=== PATIENT | male | born 1970 | race Caucasian/White ===

== ENCOUNTER 2020-07-27 09:54 | Day surgery (SDC) | payer OTHER, SELFPAY ==
[2020-07-20 13:26] VITALS: BMI 27.9
--- NOTE | 2020-07-26 09:18 | HO.ANESPROP2 ---
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 HTN (hypertension) Surgical History Surgical History Hx of tonsillectomy Social History Social History (Updated 07/20/20 @ 13:24 by Bre Huff) Alcohol intake: never Smoking Status: Never smoker Use of substances other than those prescribed or required for medical reasons: No Advance Directives: No Advance Directives Information Provided: No Advance Directives on File: No Meds Allergies Allergy/AdvReac Type Severity Reaction Status Date / Time No Known Allergies Allergy Verified 07/20/20 13:24 [No Known Allergies*] Home Medications Medication Instructions Recorded Confirmed Type lisinopril 5 mg PO DAILY 07/20/20 07/20/20 History Exam Exam Date and Time: July 26, 202018 Height,Weight and Vital Signs: Height 5 ft 10 in Weight 88.451 kg Assessment and Plan Assessment Anesthesia Assessment: Chart Reviewed Documented by User: Natalia Back 07/27/20 11:14 [facility] Past Medical History Medical History 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 HTN (hypertension) Surgical History Surgical History Hx of tonsillectomy Social History Social History (Updated 07/20/20 @ 13:24 by Bre Huff) Alcohol intake: never Smoking Status: Never smoker Use of substances other than those prescribed or required for medical reasons: No Advance Directives: No Advance Directives Information Provided: No Advance Directives on File: No Meds Allergies Allergy/AdvReac Type Severity Reaction Status Date / Time No Known Allergies Allergy Verified 07/20/20 13:24 [No Known Allergies*] Home Medications Medication Instructions Recorded Confirmed Type lisinopril 5 mg PO DAILY 07/20/20 07/20/20 History Exam Airway Mallampati Class: II TM Dist: >3cm Neck ROM: Full Heart: RRR Lungs: CTA
[2020-07-27 10:17] VITALS: BP 140/89; PULSE 101; RESP 16; TEMP 36.3; O2SAT 100
[2020-07-27] MEDS: Lactated Ringers 1,000 ML 100 ML IVCONT (10:19)
--- NOTE | 2020-07-27 11:42 | MHC.SHP ---
Pre-Procedural Eval Section B Chief Complaint: SCREENING Relevant Family History (Specify if Yes): No Relevant Social History: None Present Medications: see Short Stay Collaborative assessment Medical History: Significant History (HTN) History of Previous Operations: Relevant previous surgery/procedure and date(s) (tonsils) Allergies: Allergies Allergy/AdvReac Type Severity Reaction Status Date / Time No Known Allergies Allergy Verified 07/20/20 13:24 [No Known Allergies*] Review of Systems Sugical H&P ROS: Negative: Constitution, Cardiovascular, Respiratory, Neurological, Psychiatric, Hem-Onc, Allergic/Immunologic, Gastrointestinal, Genitourinary, Musculoskeletal, Integumentary, Endocrine and Eyes/Ears/Nose/Throat Exam Surgical H&P Exam: Normal: HEENT, Normal: Heart, Normal: Lungs, Normal: Extremities, Normal: Abdomen, Normal: Skin and Normal: Neurological Plan Diagnosis/Plan: Unchanged Patient has been examined and remains a candidate for the planned procedure
--- NOTE | 2020-07-27 11:43 | P.OP_ITS ---
Operative Note Operative Note Date of Service: 07/27/20 Narrative: Operative Information Procedure Description: Colonoscopy COLONOSCOPY Instrument: Olympus variable stiffness pediatric scope 190L Colonoscopy Monitoring: Vital signs and clinical assessment, continuous EKG monitoring, Pulse oximetry, Carbon Dioxide monitoring and blood pressure monitoring were done throughout the procedure. Colon withdrawal time was 8 minutes. Procedure: The patient was placed in the left lateral decubitis position and pre-procedure medications were administered. After a digital rectal examination of the ano-rectum, the video colonoscope was inserted into the rectum and advanced through the colon to the cecum/TI. The colonoscope was slowly withdrawn in a retrograde panoramic fashion and the colon mucosa was carefully examined including a retroflexed view of the rectum. Findings and interventions are described below. Procedure Difficulty:easy Findings: scattered medium sized diverticula in right and left colon Terminal Ileum-normal Cecum:normal Ascending Colon: normal Transverse Colon -normal Descending Colon:normal Sigmoid Colon: normal Rectum: Retroflexion with small sized internal hemorrhoids, grade I Anorectum - normal Colon preparation: [place] Bowel Preparation Scale Right colon; 3 Transverse colon: 3 Left colon; 2 (0 = Unprepared colon segment with mucosa not seen due to solid stool that cannot be cleared. 1 = Portion of mucosa of the colon segment seen, but other areas of the colon segment not well seen due to staining, residual stool and/or opaque liquid. 2 = Minor amount of residual staining, small fragments of stool and/or opaque liquid, but mucosa of colon segment seen well. 3 = Entire mucosa of colon segment seen well with no residual staining, small fragments of stool or opaque liquid) Impression and Post Procedure Diagnosis: internal hemorrhoids diverticular disease Plan: High fiber diet leaflet Avoid straining at stool, epsom salts and sitz bath, anusol supps or cream as needed Repeat Colonoscopy in 10 years or earlier if clinically indicated Above findings were reviewed with the patient and relevant handouts were provided if indicated.
--- NOTE | 2020-07-27 11:43 | PM.OP ---
Brief Operative Note Date of Service: 07/27/20 Pre-op diagnosis: colon screen Post-op diagnosis: same Procedure: see op note Surgeon: Dwayne Hagen MD Anesthesia: MAC Estimated blood loss (mL): 0 Condition: stable Disposition: PACU
[2020-07-27 12:12] VITALS: BP 102/59; PULSE 91; RESP 16; TEMP 36.8; O2SAT 96
[2020-07-27 12:27] VITALS: BP 114/70; PULSE 83; RESP 13; TEMP 36.8; O2SAT 97
--- NOTE | 2020-07-27 13:23 | HO.POSTANES ---
Post Anesthesia Evaluation Post Anesthesia Evaluation Vital Signs: Vital Signs Temp Pulse Resp BP Pulse Ox 07/27/20 12:27 98.3 F 83 13 114/70 97 07/27/20 12:12 98.3 F 91 16 102/59 L 96 07/27/20 10:17 97.4 F 101 H 16 140/89 H 100 Anesthesia: Monitored Mental Status: Awake Pain Control: Satisfactory Nausea/Vomiting: None Hydration: Adequate Anesthesia-Related Issues: No Anes. Related Issues
== END 2020-07-27 13:00 | disposition home or self-care (01) ==
PROVIDERS: Internal Medicine Gastroenterology; PCP Internal Medicine Geriatric Medicine; Visit Provider Nuclear Medicine
PROC: 0DJD8ZZ Inspection of Lower Intestinal Tract, Via Natural or Artificial Opening Endoscopic (ICD-10-PCS; CPT 45378; principal; 2020-07-27 11:30)
DX: Z12.11 Encounter for screening for malignant neoplasm of colon (principal); K57.30 Diverticulosis of large intestine without perforation or abscess without bleeding; K64.0 First degree hemorrhoids; I10 Essential (primary) hypertension
CPT/HCPCS: 45378

== ENCOUNTER → 2020-08-09 11:08 | Outpatient (BNVA) | payer OTHER, SELFPAY | PROVIDERS: PCP Internal Medicine Geriatric Medicine; Referring Provider Internal Medicine Geriatric Medicine; Visit Provider Physician Assistant | DX: Z76.89 Persons encountering health services in other specified circumstances (principal) ==

== ENCOUNTER 2021-07-07 07:40 | Inpatient (IN) | payer OTHER, SELFPAY ==
--- NOTE | ~2021-07-07 | CT_ITS ---
EXAMINATION: CT ABDOMEN AND PELVIS WITH CONTRAST CLINICAL INFORMATION: Left lower quadrant abdominal pain. COMPARISON: None TECHNIQUE: Multidetector volumetric images were obtained from the superior aspect of the liver through the pubic symphysis following administration 85 mL of Omnipaque 350 intravenous contrast. Sagittal and coronal reformatted images were obtained on the technologist's workstation. Oral contrast: No This CT examination was performed using dose optimization techniques as appropriate, variously including the following: *Automated exposure control *Adjustment of mA and/or kV according to patient size (this includes techniques or standardized protocols for targeted exams where dose is matched to indication/reason for exam; i.e. extremities or head) *Use of iterative reconstruction technique DLP: 738.0 mGy-cm FINDINGS: LUNG BASES: Motion related artifacts are noted. Hypoventilatory changes are noted at both lung bases. LIVER, GALLBLADDER, AND BILIARY TREE: Focal fatty infiltration is noted within the right lobe of the liver. No superimposed focal liver lesion. The gallbladder is unremarkable with no evidence of radiopaque gallstones, gallbladder wall thickening, or obvious pericholecystic inflammatory changes. PANCREAS: Unremarkable. SPLEEN: Unremarkable. ADRENAL GLANDS: Unremarkable. KIDNEYS AND URETERS: The kidneys are normal in size, shape, and attenuation. No hydronephrosis, hydroureter, or calculi seen. No perinephric stranding. BLADDER: Unremarkable. GASTROINTESTINAL TRACT: Focal colonic wall thickening and pericolonic inflammatory changes are noted at the distal descending colon associated with underlying colonic diverticuli. Specific note is made of few tiny air pocket seen along the posterior wall (578:4), consistent with acute distal descending colonic diverticulitis complicated by microperforation. No evidence of any fluid collection/abscess formation is seen. There is no evidence of any bowel obstruction or fistula formation present. The remainder of the large bowel otherwise appear unremarkable. The appendix is well-visualized at right lower quadrant (580:4), unremarkable. The small bowel loops are decompressed. The stomach is decompressed. ABDOMINAL WALL: No significant hernia is appreciated. LYMPH NODES: There are no pathologically enlarged lymphadenopathy present. VASCULAR: Atherosclerotic disease of the aorta and is branches without aneurysm formation. PELVIC VISCERA: There is no pelvic mass present. No evidence of any free fluid and/or free air. OSSEOUS STRUCTURES: Unremarkable. CT/CT abdomen pelvis w con IMPRESSION: 1. Abnormal study. Features of acute distal descending colonic diverticulitis complicated by microperforation without evidence of any abscess formation, pericolonic fluid collection or fistula formation or obstruction. 2. Focal fatty infiltration within the right lobe of the liver. 3. Atherosclerotic disease of the aorta and is branches without aneurysm formation. This critical result was discussed with DR Gerald Appiah @ 112pm on 07/07/2021 and it was ascertained that the content and urgency of the report was understood at the time of direct communication.
[2021-07-07 08:03] VITALS: BP 127/78; PULSE 116; RESP 20; TEMP 36.6; O2SAT 99; BMI 30.1
--- NOTE | 2021-07-07 10:58 | ED_ITS ---
HPI - Abdominal Pain General Chief Complaint: Abdominal Pain Stated Complaint: abd pain Time Seen by Provider: 07/07/21 10:51 Source: patient Mode of arrival: ambulatory Limitations: no limitations History of Present Illness HPI narrative: Patient comes emergency room complaining of suprapubic and left lower quadrant pain for 3 days. Patient states that he went to see his primary care physician yesterday, patient has labs and imaging pending. However, patient could not tolerate the pain and came to the emergency room. Patient denies fever chills, no flank pain, hematuria or dysuria. Patient denies fever chills. MD elicited complaint: abdominal pain Related Data Home Medications Medication Instructions Recorded Confirmed lisinopril 5 mg tablet 5 mg PO DAILY 07/20/20 07/20/20 Previous Rx's Medication Instructions Recorded sodium,potassium,mag sulfates 17.5 354 ml PO .Bowel Prep 1 Days #354 07/08/20 gram-3.13 gram-1.6 gram oral soln ml (Suprep Bowel Prep Kit) Allergies Allergy/AdvReac Type Severity Reaction Status Date / Time No Known Allergies Allergy Verified 07/20/20 13:24 [No Known Allergies*] Review of Systems Review of Systems Constitutional : No Weight loss, No Fever, No Chills, No Night Sweats, No Fatigue, No Malaise ENT/Mouth : No Hearing loss, No Ear Pain, No Nasal Congestion, No Sinus Pain, No Hoarseness, No sore throat, No Rhinorrhea, No Swallowing Difficulty Eyes: No Eye Pain, No Swelling, No Redness, No Foreign Body, No Discharge, No Vision Changes Cardiovascular : No Chest Pain, No SOB, No Dyspnea on Exertion, No Orthopnea, No Edema, No Palpitations Respiratory : No Cough, No Sputum, No Wheezing, No Smoke Exposure, No Dyspnea Gastrointestinal : No Nausea, No Vomiting, 1 episode of diarrhea, No Constipation, complaining of left lower quadrant and suprapubic pain, no flank pain, No Hematochezia, No Melena Genitourinary : no irregular bleeding, No Dysuria, No Urinary Frequency, No Hematuria, No Urinary Incontinence, No Urgency, No Flank Pain, No Urinary Flow Changes, No Hesitancy Musculoskeletal : No joint pain, No Myalgias, No Joint Swelling Skin : No Skin Lesions, No rash Neuro : No Weakness, No Numbness, No Paresthesias, No Loss of Consciousness, No Dizziness, No Headache Psych : No Anxiety/Panic, No Depression, No SI/HI/AH/VH, No Social Issues, Heme/Lymph: No Bruising, No Bleeding,No Lymphadenopathy Endocrine : No Polyuria, No Polydipsia, No Temperature Intolerance Physical Exam Vital Signs: Vital Signs: Last Vital Signs Temp 98.1 F 07/07/21 11:45 Pulse 114 H 07/07/21 11:45 Resp 16 07/07/21 11:45 BP 124/86 07/07/21 11:45 Pulse Ox 100 07/07/21 11:45 Body Mass Index 30.1 Const: Other: Appearance: Alert. Oriented X3. Seems uncomfortable Eyes: Pupils equal, round and reactive to light. ENT: Pharynx normal. Neck: Normal inspection. Neck supple. No lymph nodes noted. No crepitus CVS: Normal heart rate and rhythm. Pulses normal. Normal S1 and S2 Respiratory: No respiratory distress. Breath sounds normal. No Wheezing. No rales Abdomen: Soft , tenderness to palpation over the left lower quadrant, guarding, mild rebound, No rigidity. No distention Skin: Skin warm and dry. Normal skin color. Normal skin turgor. Extremities: No lower extremity edema. No lower extremity edema. No Lacerations. No Rash Neuro: Oriented X 3. No motor deficit. No sensory deficit. Moving all extermities. No slurred speech. Course Course Course Narrative: Patient feeling better after IV fluids, morphine and Zofran. However, patient's CT scan shows descending diverticulitis with micrope rforations. I discussed the patient and the CT scan findings with Dr. Rodriguez, patient being admitted. MDM - Abdominal Pain Lab Data Result diagrams: 07/07/21 11:39 07/07/21 11:39 Labs: Lab Results 07/07/21 07/07/21 07/07/21 Range/Units 11:01 11:01 11:01 WBC 11.3 H (4.8-10.8) X10*3/uL RBC 5.07 (4.60-5.80) X10*6/uL Hgb 14.9 (14.0-18.0) g/dl Hct 44.9 (42.0-52.0) % MCV 88.6 (80.0-98.0) fL MCH 29.4 (27.0-33.0) pg MCHC 33.2 (31.0-36.0) g/dl RDW 13.0 (11.0-16.0) % Plt Count 191 (160-400) X10*3/uL MPV 10.6 (9.4-12.4) fL Immature Gran % (Auto) 0.3 (0.0-0.4) % Neut % (Auto) 70.6 (45-73) % Lymph % (Auto) 16.8 L (20-40) % [place] % (Auto) 11.4 H (2-11) % Eos % (Auto) 0.5 (0-4) % Baso % (Auto) 0.4 (0-2) % Lymph # (Auto) 1.9 (1.2-4.9) X10*3/uL [place] # (Auto) 1.3 H (0.1-1.2) X10*3/uL Eos # (Auto) 0.1 (0.0-0.4) X10*3/uL Baso # (Auto) 0.0 (0.0-0.2) X10*3/uL Abs Immat Gran (auto) 0.03 (0.00-0.03) X10*3/uL Absolute Neuts (auto) 8.0 (2.0-8.3) x10*3/uL Absolute Nucleated RBC 0.000 (0.0-0.012) X10*3/uL Nucleated RBC % (auto) 0.0 (0.0-0.2) /100WBC Sodium 136 (135-145) mmol/L Potassium 4.0 (3.3-5.1) mmol/L Chloride 101 (96-108) mmol/L Carbon Dioxide 27 (22-29) mmol/L Anion Gap 12 (12-20) BUN 10 (9-16) mg/dL Creatinine 1.05 (0.5-1.4) mg/dL Estim Creat Clear Calc 97.5 Estimated GFR > 60 Random Glucose 103 (60-115) mg/dL Calcium 8.8 (8.4-10.2) mg/dL Total Bilirubin 0.6 (0.0-1.0) mg/dL Direct Bilirubin (0.0-0.5) mg/dL AST 24 (5-37) U/L ALT 52 H (0-40) U/L Alkaline Phosphatase 104 (39-117) U/L Total Protein 7.0 (6.5-8.0) g/dL Albumin 4.1 (3.5-5.0) g/dL Lipase 23 (8-78) U/L Urine Color Urine Appearance Urine pH (5.0-8.0) Ur Specific [place] (1.005-1.025) Urine Protein (NEG-TRACE) MG/DL Urine Glucose (UA) (NEG) MG/DL Urine Ketones (NEG) MG/DL Urine Blood (NEG) Urine Nitrite (NEG) Ur Leukocyte Esterase (NEG) COVID-19 (EL) Negative (Negative) COVID-19 Clin Com See Note 07/07/21 07/07/21 07/07/21 Range/Units 11:01 11:39 11:39 WBC 10.3 (4.8-10.8) X10*3/uL RBC 4.99 (4.60-5.80) X10*6/uL Hgb 14.5 (14.0-18.0) g/dl Hct 44.1 (42.0-52.0) % MCV 88.4 (80.0-98.0) fL MCH 29.1 (27.0-33.0) pg MCHC 32.9 (31.0-36.0) g/dl RDW 12.9 (11.0-16.0) % Plt Count 183 (160-400) X10*3/uL MPV 10.9 (9.4-12.4) fL Immature Gran % (Auto) 0.2 (0.0-0.4) % Neut % (Auto) 71.7 (45-73) % Lymph % (Auto) 14.5 L (20-40) % [place] % (Auto) 12.6 H (2-11) % Eos % (Auto) 0.6 (0-4) % Baso % (Auto) 0.4 (0-2) % Lymph # (Auto) 1.5 (1.2-4.9) X10*3/uL [place] # (Auto) 1.3 H (0.1-1.2) X10*3/uL Eos # (Auto) 0.1 (0.0-0.4) X10*3/uL Baso # (Auto) 0.0 (0.0-0.2) X10*3/uL Abs Immat Gran (auto) 0.02 (0.00-0.03) X10*3/uL Absolute Neuts (auto) 7.4 (2.0-8.3) x10*3/uL Absolute Nucleated RBC 0.000 (0.0-0.012) X10*3/uL Nucleated RBC % (auto) 0.0 (0.0-0.2) /100WBC Sodium 137 (135-145) mmol/L Potassium 4.4 (3.3-5.1) mmol/L Chloride 102 (96-108) mmol/L Carbon Dioxide 27 (22-29) mmol/L Anion Gap 12 (12-20) BUN 11 (9-16) mg/dL Creatinine 0.97 (0.5-1.4) mg/dL Estim Creat Clear Calc 105.5 Estimated GFR > 60 Random Glucose 102 (60-115) mg/dL Calcium 9.0 (8.4-10.2) mg/dL Total Bilirubin 0.6 (0.0-1.0) mg/dL Direct Bilirubin 0.2 (0.0-0.5) mg/dL AST 23 (5-37) U/L ALT 49 H (0-40) U/L Alkaline Phosphatase 101 (39-117) U/L Total Protein 6.8 (6.5-8.0) g/dL Albumin 4.0 (3.5-5.0) g/dL Lipase 23 (8-78) U/L Urine Color YELLOW Urine Appearance HAZY Urine pH 5.5 (5.0-8.0) Ur Specific [place] 1.020 (1.005-1.025) Urine Protein TRACE (NEG-TRACE) MG/DL Urine Glucose (UA) NEG (NEG) MG/DL Urine Ketones NEG (NEG) MG/DL Urine Blood NEG (NEG) Urine Nitrite NEG (NEG) Ur Leukocyte Esterase NEG (NEG) COVID-19 (EL) (Negative) COVID-19 Clin Com Imaging Data CT scan - abdomen: Radiologist's impression: FINDINGS: LUNG BASES: Motion related artifacts are noted. Hypoventilatory changes are noted at both lung bases.? LIVER, GALLBLADDER, AND BILIARY TREE: Focal fatty infiltration is noted within the right lobe of the liver. No superimposed focal liver lesion. The gallbladder is unremarkable with no evidence of radiopaque gallstones, gallbladder wall thickening, or obvious pericholecystic inflammatory changes.? PANCREAS: Unremarkable.? SPLEEN: Unremarkable.? ADRENAL GLANDS: Unremarkable.? KIDNEYS AND URETERS: The kidneys are normal in size, shape, and attenuation. No hydronephrosis, hydroureter, or calculi seen. No perinephric stranding. ? BLADDER: Unremarkable.? GASTROINTESTINAL TRACT: Focal colonic wall thickening and pericolonic inflammatory changes are noted at the distal descending colon associated with underlying colonic diverticuli. Specific note is made of few tiny air pocket seen along the posterior wall (578:4), consistent with acute distal descending colonic diverticulitis complicated by microperforation. No evidence of any fluid collection/abscess formation is seen. There is no evidence of any bowel obstruction or fistula formation present. The remainder of the large bowel otherwise appear unremarkable. The appendix is well-visualized at right lower quadrant (580:4), unremarkable. The small bowel loops are decompressed. The stomach is decompressed. ABDOMINAL WALL: No significant hernia is appreciated.? LYMPH NODES: There are no pathologically enlarged lymphadenopathy present. VASCULAR: Atherosclerotic disease of the aorta and is branches without aneurysm formation. PELVIC VISCERA: There is no pelvic mass present. No evidence of any free fluid and/or free air.? OSSEOUS STRUCTURES: Unremarkable.? CT/CT abdomen pelvis w con IMPRESSION: ? 1. Abnormal study. Features of acute distal descending colonic diverticulitis complicated by microperforation without evidence of any abscess formation, pericolonic fluid collection or fistula formation or obstruction. 2. Focal fatty infiltration within the right lobe of the liver. 3. Atherosclerotic disease of the aorta and is branches without aneurysm formation. ? Discharge Plan Discharge Clinical Impression: Diverticulitis large intestine Patient Disposition: Admitted As Inpatient Prescriptions: No Action Suprep Bowel Prep Kit 17.5-3.13-1.6 gram recon soln 354 ml PO .Bowel Prep 1 Days Qty: 354 RF: 0 lisinopril 5 mg Tablet 5 mg PO DAILY RF: 0 PMFSH Past Medical History Medical History 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 HTN (hypertension) Internal hemorrhoids Surgical History Hx of tonsillectomy Social History Social History (Updated 07/20/20 @ 13:24 by Bre Huff, ТАТЬЯНА) Alcohol intake: never Patient Tobacco Use Status: Never used Tobacco Use of substances other than those prescribed or required for medical reasons: No Advance Directives: No
[2021-07-07 11:07] LABS: Appearance Urine HAZY; Basophils Percent Auto 0.4 % (0-2); Color Urine YELLOW; Eosinophils Absolute Auto 0.1 X10*3/uL (0.0-0.4); Eosinophils Percent Auto 0.5 % (0-4); Glucose Urine UA NEG (NEG); Hematocrit 44.9 % (42.0-52.0); Hemoglobin 14.9 g/dl (14.0-18.0); Imm Gran Abs Auto 0.03 X10*3/uL (0.00-0.03); Imm Gran Pct Auto 0.3 % (0.0-0.4); Leukocyte Esterase Urine NEG (NEG); Lymphocytes Absolute Auto 1.9 X10*3/uL (1.2-4.9); Lymphocytes Percent Auto 16.8 % (20-40); Mean Corpuscular HGB Conc 33.2 g/dl (31.0-36.0); Mean Corpuscular Hemoglobin 29.4 pg (27.0-33.0); Mean Corpuscular Volume 88.6 fL (80.0-98.0); Mean Platelet Volume 10.6 fL (9.4-12.4); Monocytes Absolute Auto 1.3 X10*3/uL (0.1-1.2); Monocytes Percent Auto 11.4 % (2-11); Neutrophils Percent Auto 70.6 % (45-73); Nitrite Urine NEG (NEG); PH 5.5 (5.0-8.0); Platelet Count 191 X10*3/uL (160-400); Red Blood Count 5.07 X10*6/uL (4.60-5.80); Urine Blood NEG (NEG); Urine Ketones NEG (NEG); Urine Protein TRACE MG/DL (NEG-TRACE); White Blood Count 11.3 X10*3/uL (4.8-10.8)
[2021-07-07 11:08] LABS: MANUAL DIFF FLAG NO
[2021-07-07 11:25] LABS: Alanine Aminotransferase 52 U/L (0-40); Albumin Level 4.1 g/dL (3.5-5.0); Alkaline Phosphatase 104 U/L (39-117); Anion Gap 12 (12-20); Aspartate Amino Transferase 24 U/L (5-37); Bilirubin Total 0.6 mg/dL (0.0-1.0); Blood Urea Nitrogen 10 mg/dL (9-16); Calcium 8.8 mg/dL (8.4-10.2); Carbon Dioxide 27 mmol/L (22-29); Chloride 101 mmol/L (96-108); Creatinine Clr Calc Pharmacy 97.5; Estimated Glomerular Filt Rate > 60; Glucose Random 103 mg/dL (60-115); Lipase 23 U/L (8-78); Sodium 136 mmol/L (135-145)
[2021-07-07 11:27] LABS: COVID-19 Test Negative (Negative)
[2021-07-07] MEDS: 0.9 % Sodium Chloride 1,000 ML 999 ML IVCONT (11:42)
[2021-07-07] MEDS: Morphine Sulfate 4 MG/ML CARTRIDGE IVPUSH ×2 (11:43→16:24)
[2021-07-07] MEDS: ondansetron HCL 4 MG/2 ML VIAL IVPUSH (11:43)
[2021-07-07 11:45] VITALS: BP 124/86; PULSE 114; RESP 16; TEMP 36.7; O2SAT 100
[2021-07-07 11:47] LABS: MANUAL DIFF FLAG NO
[2021-07-07 11:58] LABS: Basophils Percent Auto 0.4 % (0-2); Eosinophils Absolute Auto 0.1 X10*3/uL (0.0-0.4); Eosinophils Percent Auto 0.6 % (0-4); Hematocrit 44.1 % (42.0-52.0); Hemoglobin 14.5 g/dl (14.0-18.0); Imm Gran Abs Auto 0.02 X10*3/uL (0.00-0.03); Imm Gran Pct Auto 0.2 % (0.0-0.4); Lymphocytes Absolute Auto 1.5 X10*3/uL (1.2-4.9); Lymphocytes Percent Auto 14.5 % (20-40); Mean Corpuscular HGB Conc 32.9 g/dl (31.0-36.0); Mean Corpuscular Hemoglobin 29.1 pg (27.0-33.0); Mean Corpuscular Volume 88.4 fL (80.0-98.0); Mean Platelet Volume 10.9 fL (9.4-12.4); Monocytes Absolute Auto 1.3 X10*3/uL (0.1-1.2); Monocytes Percent Auto 12.6 % (2-11); Neutrophils Absolute Auto 7.4 x10*3/uL (2.0-8.3); Neutrophils Percent Auto 71.7 % (45-73); Platelet Count 183 X10*3/uL (160-400); Red Blood Count 4.99 X10*6/uL (4.60-5.80); Red Cell Distribution Width 12.9 % (11.0-16.0); White Blood Count 10.3 X10*3/uL (4.8-10.8)
[2021-07-07 12:06] LABS: Alanine Aminotransferase 49 U/L (0-40); Alkaline Phosphatase 101 U/L (39-117); Anion Gap 12 (12-20); Aspartate Amino Transferase 23 U/L (5-37); Bilirubin Direct 0.2 mg/dL (0.0-0.5); Bilirubin Total 0.6 mg/dL (0.0-1.0); Blood Urea Nitrogen 11 mg/dL (9-16); Carbon Dioxide 27 mmol/L (22-29); Chloride 102 mmol/L (96-108); Creatinine Clr Calc Pharmacy 105.5; Estimated Glomerular Filt Rate > 60; Glucose Random 102 mg/dL (60-115); Lipase 23 U/L (8-78); Potassium 4.4 mmol/L (3.3-5.1); Sodium 137 mmol/L (135-145); Total Protein 6.8 g/dL (6.5-8.0)
[2021-07-07] MEDS: iohexoL 350 MG/ML 100 ML INFUS..BTL IV (12:17)
--- NOTE | 2021-07-07 13:45 | P.HPGS_ITS ---
History of Present Illness History of Present Illness Date of Service: 07/07/21 Chief complaint: abd pain Narrative: Nirav Black is a 51 year old male presenting with complaints of abdominal pain in the left lower quadrant. The pain began approximately 3 days prior to presentation to the emergency department. He also reports episodes of diarrhea since the pain began. He denies a prior history of similar symptoms. He reports chills but denies fever or sweats. He denies a previous history of abdominal surgery. Upon presentation to the emergency department he was noted to be tender in the left lower quadrant. Laboratories revealed a normal WBC. CT of the abdomen and pelvis however revealed diverticulitis of the sigmoid colon with the micro perforation. He is admitted to the surgical service for management of the diverticulitis. Review of Systems Review of Systems: Yes all other systems are reviewed and are negative Constitutional: Constitutional: Reports anorexia, Reports chills, Denies fever(s) and Denies night sweats ENT: Reports Normal hearing present and Denies dysphagia Cardiovascular: Cardiovascular: Reports Abdominal Distension, Denies chest pain, Denies irregular heart rhythm, Denies palpitations and Denies dyspnea Respiratory: Respiratory: Denies chest congestion, Denies cough and Denies dyspnea Gastrointestinal: Gastrointestinal: Reports as per HPI, Reports abdominal pain, Denies dysphagia, Reports diarrhea, Denies nausea and Denies vomiting Genitourinary: Genitourinary: Reports no additional male genitourinary complaints Musculoskeletal: Musculoskeletal: Reports no additional musculoskeletal complaints Integumentary/Breasts: Skin/Breast: Reports system reviewed and no additional complaints, except as docu Neurologic: Reports Normal hearing present Endocrine: Endocrine: Denies palpitations PMFSH Past Medical History Medical History 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 HTN (hypertension) Internal hemorrhoids Surgical History Surgical History Hx of tonsillectomy Social History Social History Alcohol intake: never Patient Tobacco Use Status: Never used Tobacco Use of substances other than those prescribed or required for medical reasons: No Advance Directives: No Meds Allergies Allergy/AdvReac Type Severity Reaction Status Date / Time No Known Allergies Allergy Verified 07/20/20 13:24 [No Known Allergies*] Home Medications Medication Instructions Recorded Confirmed Last Taken Type lisinopril 5 mg tablet 5 mg PO DAILY 07/20/20 07/20/20 07/27/20 06:00 History Physical Exam Vital Signs: Vital Signs: Last Vital Signs Temp 98.1 F 07/07/21 11:45 Pulse 114 H 07/07/21 11:45 Resp 16 07/07/21 11:45 BP 124/86 07/07/21 11:45 Pulse Ox 100 07/07/21 11:45 Body Mass Index 30.1 Const: General: cooperative, no acute distress and well developed Nutritional Appearance: well nourished Orientation/consciousness: patient oriented x3 Limitations: no limitations HENMT: Head: Yes normocephalic and Yes atraumatic Ears: hearing grossly normal bilaterally Neck: Neck: Yes trachea midline, Yes supple and No lymphadenopathy Resp: Effort & Inspection: normal respiratory effort, no audible wheezes, no cough and no respiratory distress GI: Inspection: Yes normal to inspection Palpation (GI): Soft to palpation, Tenderness to palpation present (GI) in the LLQ, no guarding, not rigid, No hepatosplenomegaly present and no masses Percussion: Yes normal to percussion Auscultation: normal bowel sounds Rectal Exam - Male: Yes deferred Skin: General skin exam: no rashes or lesions noted Neuro: General: patient oriented x3 Cranial nerves: Yes Normal hearing present Extrem: General: Yes no clubbing, cyanosis or edema Results Results Labs: Short CBC 07/07/21 07/07/21 Range/Units 11:01 11:39 WBC 11.3 H 10.3 (4.8-10.8) X10*3/uL Hgb 14.9 14.5 (14.0-18.0) g/dl Hct 44.9 44.1 (42.0-52.0) % Plt Count 191 183 (160-400) X10*3/uL BMP 07/07/21 07/07/21 11:01 11:39 Sodium 136 137 Potassium 4.0 4.4 Chloride 101 102 Carbon Dioxide 27 27 BUN 10 11 Creatinine 1.05 0.97 Calcium 8.8 9.0 Liver Function 07/07/21 07/07/21 Range/Units 11:01 11:39 Total Bilirubin 0.6 0.6 (0.0-1.0) mg/dL Direct Bilirubin 0.2 (0.0-0.5) mg/dL AST 24 23 (5-37) U/L ALT 52 H 49 H (0-40) U/L Alkaline Phosphatase 104 101 (39-117) U/L Albumin 4.1 4.0 (3.5-5.0) g/dL Urine 07/07/21 Range/Units 11:01 Urine Color YELLOW Urine Appearance HAZY Urine pH 5.5 (5.0-8.0) Ur Specific [place] 1.020 (1.005-1.025) Urine Protein TRACE (NEG-TRACE) MG/DL Urine Glucose (UA) NEG (NEG) MG/DL Abdomen CT scan report/results: image reviewed and other Additional studies: Sigmoid diverticulitis with micro perforation: Assessment and Plan (1) Diverticulitis of intestine with perforation without abscess: Status: Acute 51-year-old male patient presenting with complaints of abdominal pain in the left lower quadrant of 3 days duration found to have sigmoid diverticulitis with micro perforation. Patient denies previous episodes of diverticulitis. He reports chills but denies fever or sweats. Laboratories including WBC are normal. Patient will be admitted to the surgical service for IV antibiotics. I will repeat his CBC in the a.m.. He will be kept NPO on IV fluids. I reviewed the CT results with the patient and discussed the findings and the plan. He expressed understanding and agrees with the plan. Quality Stroke Does the patient have a stroke diagnosis?: No VTE Prior VTE?: No VTE Risk Level:: Surgical - low VTE Device Contraindication: N/A - Device Ordered VTE Drug Contraindication: Treatment Not Indicated Procedures Date of Service Date of Service: 07/07/21
[2021-07-07 14:22] VITALS: BP 135/80; PULSE 102; RESP 16; TEMP 36.7; O2SAT 99
[2021-07-07 15:38] VITALS: BP 116/71; PULSE 96; RESP 18; TEMP 36.6; O2SAT 96
--- NOTE | 2021-07-07 16:19 | PHA.MEDREC ---
Pharmacy Consult ? Medication Reconciliation Pharmacy has completed the medication reconciliation.
[2021-07-07] MEDS: Piperacillin Sodium/Tazobactam 3.375 GM in 0.9 % Sodium Chloride 50 ML IV ×2 (16:24→22:59)
[2021-07-07] MEDS: Dextrose 5 % and Lactated Ring 1,000 ML 125 ML IVCONT ×2 (16:25→23:54)
[2021-07-07] MEDS: 0.9 % Sodium Chloride Flush 3 ML SYRINGE IVFLUSH ×2 (16:26→23:55)
[2021-07-07 17:47] VITALS: BP 101/56; PULSE 95; RESP 18; TEMP 36.8; O2SAT 98
[2021-07-07 18:09] LABS: INTERNATIONAL NORM RATIO 1.2 (0.9-1.1); Prothrombin Time 13.4 SEC (9.9-13.0)
[2021-07-07 18:12] LABS: Lactic Acid 0.8 mmol/L (0.5-2.0)
--- NOTE | 2021-07-07 19:55 | PC.NURSE ---
Nurse to nurse given to Leann. pt. ready for transport upstairs
[2021-07-07 20:40] VITALS: BP 116/68; PULSE 95; RESP 17; TEMP 36.8; O2SAT 97
--- NOTE | 2021-07-07 21:21 | MHC.CM.PN ---
CM met with admitted patient and his , with medical chief technician, as pt is Ethiopian speaking. No IMM necessary. No HCP on file. HCP reviewed, completed and signed. Copies given and uploaded into [facility] and [facility]. HCP/ Keisha Clinton ([phone]). Lives with . A&Ox3. Employed. Uses no DME or services. Fully vaccinated with Moderna. D/C plan is home without services. Transportation home by . CM to follow for d/c needs.
[2021-07-08] VITALS: BP 107/60; PULSE 85; RESP 17; TEMP 36.6; O2SAT 95
[2021-07-08] MEDS: Piperacillin Sodium/Tazobactam 3.375 GM in 0.9 % Sodium Chloride 50 ML IV ×4 (04:53→21:18)
[2021-07-08 06:14] LABS: MANUAL DIFF FLAG NO
[2021-07-08 06:17] LABS: Basophils Percent Auto 0.4 % (0-2); Eosinophils Absolute Auto 0.1 X10*3/uL (0.0-0.4); Eosinophils Percent Auto 1.7 % (0-4); Hematocrit 39.4 % (42.0-52.0); Hemoglobin 13.3 g/dl (14.0-18.0); Imm Gran Abs Auto 0.01 X10*3/uL (0.00-0.03); Imm Gran Pct Auto 0.1 % (0.0-0.4); Lymphocytes Absolute Auto 1.8 X10*3/uL (1.2-4.9); Lymphocytes Percent Auto 24.6 % (20-40); Mean Corpuscular HGB Conc 33.8 g/dl (31.0-36.0); Mean Corpuscular Hemoglobin 29.4 pg (27.0-33.0); Mean Corpuscular Volume 87.2 fL (80.0-98.0); Mean Platelet Volume 10.7 fL (9.4-12.4); Monocytes Percent Auto 14.5 % (2-11); Neutrophils Absolute Auto 4.2 x10*3/uL (2.0-8.3); Neutrophils Percent Auto 58.7 % (45-73); Platelet Count 190 X10*3/uL (160-400); Red Blood Count 4.52 X10*6/uL (4.60-5.80); Red Cell Distribution Width 12.9 % (11.0-16.0); White Blood Count 7.1 X10*3/uL (4.8-10.8)
[2021-07-08 06:38] LABS: Anion Gap 12 (12-20); Blood Urea Nitrogen 11 mg/dL (9-16); Calcium 8.3 mg/dL (8.4-10.2); Carbon Dioxide 26 mmol/L (22-29); Chloride 105 mmol/L (96-108); Creatinine Clr Calc Pharmacy 101.3; Estimated Glomerular Filt Rate > 60; Glucose Random 126 mg/dL (60-115); Potassium 4.1 mmol/L (3.3-5.1); Sodium 139 mmol/L (135-145)
[2021-07-08 08:00] VITALS: BP 119/80; PULSE 102; RESP 20; TEMP 36.2; O2SAT 98
--- NOTE | 2021-07-08 08:05 | PM.PNGS ---
Subjective Subjective Date of Service: 07/08/21 Interval history: Patient feels much improved with decreased abdominal pain. He reports being hungry and is moving his bowels (liquid). He denies fever or chills. Physical Exam Vital Signs: Vital Signs: Last Vital Signs Temp 97.9 F 07/08/21 00:00 Pulse 85 07/08/21 00:00 Resp 17 07/08/21 00:00 BP 107/60 07/08/21 00:00 Pulse Ox 95 07/08/21 00:00 Body Mass Index 30.1 Const: General: cooperative, healthy appearing and well developed Nutritional Appearance: well nourished Orientation/consciousness: patient oriented x3 Limitations: no limitations HENMT: Head: Yes normocephalic and Yes atraumatic Ears: hearing grossly normal bilaterally Resp: Effort & Inspection: normal respiratory effort, no audible wheezes, no cough and no respiratory distress GI: Other: Soft, nondistended, minimal tenderness to deep palpation in the left lower quadrant without rebound, guarding, or rigidity. Skin: Other: Warm, dry, no rash Neuro: General: patient oriented x3 Extrem: Other: No edema Procedures Date of Service Date of Service: 07/08/21 Progress Note: A&P Assessment and plan (1) Diverticulitis of intestine with perforation without abscess: Status: Acute Assessment and Plan: 51-year-old male patient presenting with a 1st episode of diverticulitis found to have a micro perforation in the sigmoid colon. Laboratories today revealed normal WBC. On examination the patient is improved with decreased tenderness in the left lower quadrant. I will advance him to a regular diet and continue the IV antibiotics today. Possible discharge in a.m. if he tolerates a regular diet without increased abdominal pain. Fall Risk Details Current Medications: Current Medications Acetaminophen (Acetaminophen 325 Mg Tablet) 650 mg PO QID PRN PRN Reason: headache, temp > 101 Dextrose/Lactated Ringer's (D5lr) 1,000 mls @ 125 mls/hr IVCONT .Q8H [facility] Last Admin: 07/08/21 07:09 Dose: Not Given Documented by: Piperacillin Sod/Tazobactam (Sod 3.375 gm/ Sodium Chloride) 50 mls @ 100 mls/hr IV Q6H [facility] Last Infusion: 07/08/21 05:44 Dose: Infused Documented by: Lisinopril (Lisinopril 5 Mg Tablet) 5 mg PO DAILY [facility]; Protocol Morphine Sulfate (Morphine Sulfate 4 Mg/Ml Cartridge) 4 mg IVPUSH Q4H PRN; Protocol PRN Reason: Pain, Severe (Pain Scale 7-10) Last Admin: 07/07/21 16:24 Dose: 4 mg Documented by: Ondansetron HCl (Ondansetron Hcl 4 Mg/2 Ml Vial) 4 mg IVPUSH QID PRN PRN Reason: Nausea Oxycodone HCl (Oxycodone Hcl Immed Release 5 Mg Tablet) 5 mg PO Q6H PRN PRN Reason: Pain, Moderate (Pain Scale 4-6 Pharmacy Consult (Consult Rx Perform Med Rec) 1 each MISCELLANE ONCE PRN PRN Reason: Consult order Sodium Chloride (0.9 % Sodium Chloride Flush 3 Ml Syringe) [facility] Admin: 07/08/21 07:30 Dose: Not Given Documented by: Zolpidem Tartrate (Zolpidem Tartrate 5 Mg Tablet) 5 mg PO BEDTIME PRN PRN Reason: Insomnia Time Spent With Patient Time: Total time spent is greater than 50% in coordination of care (as documented) at patient's floor/unit and/or counseling patient: Time with patient: 15 - 24 minutes Quality Stroke Does the patient have a stroke diagnosis?: No VTE Prior VTE?: No VTE Risk Level:: Surgical - low VTE Device Contraindication: N/A - Device Ordered VTE Drug Contraindication: Treatment Not Indicated
[2021-07-08 08:56] VITALS: BP 119/80; PULSE 102
[2021-07-08] MEDS: lisinopriL 5 MG TABLET PO (08:56)
--- NOTE | 2021-07-08 10:03 | MHC.CM.PN ---
NURSE CONTROLLER OPERATIONS AND HR MANAGER NOTE ELECTRONIC MEDICAL RECORD REVIEWED, PER DOCUMENTATION PATIENT WITH DIVERTICULITIS WITH PERFORTION WITH OUT ABSCESS OF SIGMOID COLON , PATIENT REPORTED FEELING BETTER AND PASSING LIQUID STOOLS, PLAN IS TO ADVANCE DIET SLOWLY , CONTINUE IV ANTIBIOTICS AND ANALGEICS , WITH POSSIBLE DISCHARGE OVER WEEKEND DISCHARGE PLAN HOME WITH WITHOUT SERVICES TRANSPORTATION FAMILY PCP PATIENT TO CALL FOR POST HOSPITAL DISCHARGE FOLLOW UP
[2021-07-08] MEDS: Dextrose 5 % and Lactated Ring 1,000 ML 125 ML IVCONT ×2 (12:27→21:23)
[2021-07-08 15:50] VITALS: BP 112/72; PULSE 94; RESP 16; TEMP 36.5; O2SAT 97
[2021-07-09] VITALS: BP 110/68; PULSE 72; RESP 16; TEMP 36.9; O2SAT 98
[2021-07-09] MEDS: Piperacillin Sodium/Tazobactam 3.375 GM in 0.9 % Sodium Chloride 50 ML IV ×2 (05:09→11:10)
[2021-07-09 05:34] VITALS: BP 112/62; PULSE 74; RESP 16; TEMP 36.4; O2SAT 98
[2021-07-09 07:35] VITALS: BP 121/74; PULSE 84; RESP 18; TEMP 37; O2SAT 95
[2021-07-09] MEDS: lisinopriL 40 MG TABLET PO (08:07)
[2021-07-09] MEDS: Dextrose 5 % and Lactated Ring 1,000 ML 125 ML IVCONT (08:07)
--- NOTE | 2021-07-09 12:23 | MHC.CM.PN ---
PATIENT IS DISCHARGED HOME - SELF CARE FAMILY TO TRANSPORT. RN AWARE OF PLAN.
--- NOTE | 2021-07-13 14:57 | PM.DS ---
DS: Providers Provider Date of Service: 07/09/21 Date of admission: 07/07/21 14:37 Date of discharge: 07/09/21 Primary care physician: Mina Harvey MD Admitting clinician: Daniele Rodriguez Discharging clinician: Daniele Rodriguez DS: Diagnosis Discharge Diagnosis (1) Diverticulitis of intestine with perforation without abscess: Status: Acute DS: Summary Status at Discharge Cognitive/behavioral status at discharge: ?Nirav Black is a 51 year old male presenting with complaints of abdominal pain in the left lower quadrant.? The pain began approximately 3 days prior to presentation to the emergency department.? He also reports episodes of diarrhea since the pain began.? He denies a prior history of similar symptoms.? He reports chills but denies fever or sweats.? He denies a previous history of abdominal surgery.? Upon presentation to the emergency department he was noted to be tender in the left lower quadrant.? Laboratories revealed a normal WBC.? CT of the abdomen and pelvis however revealed diverticulitis of the sigmoid colon with the micro perforation.? He is admitted to the surgical service for management of the diverticulitis. On examination the patient was noted to be afebrile with tenderness in the left lower quadrant without rebound, guarding, or rigidity. He was made NPO and started on IV antibiotics. By the next hospital day he reported decreased in abdominal pain, passing flatus and liquid bowel movements. He denied fever or chills. He was subsequently advanced to a regular a low residue diet and tolerated this well without increased abdominal pain. By the 3rd hospital day the patient felt much improved without abdominal pain felt comfortable going home. He was placed on oral antibiotics and subsequently discharged to home in stable condition. The plan is for him to continue on the antibiotics and follow up in the office in approximately 1 week. Functional status at discharge: independent ambulation Overall status at discharge: patient is back to baseline Time Spent with Patient Time attestation: Total time spent providing and/or coordinating discharge services: Discharge coordination time: Less than 30 minutes Quality: Stroke Does the patient have a stroke diagnosis?: No Physical Exam Vital Signs: Vital Signs: Last Vital Signs Temp 98.6 F 07/09/21 07:35 Pulse 84 07/09/21 07:35 Resp 18 07/09/21 07:35 BP 121/74 07/09/21 07:35 Pulse Ox 95 07/09/21 07:35 Body Mass Index 30.1 Const: General: healthy appearing, no acute distress and well developed Nutritional Appearance: well nourished Orientation/consciousness: patient oriented x3 Limitations: no limitations HENMT: Head: Yes normocephalic and Yes atraumatic Resp: Effort & Inspection: normal respiratory effort Auscultation: clear to auscultation bilaterally GI: Inspection: Yes normal to inspection Palpation (GI): Soft to palpation, nontender, no guarding, not rigid and No Rebound tenderness present Skin: General skin exam: no rashes or lesions noted Neuro: General: patient oriented x3 Extrem: General: Yes normal to inspection and Yes no clubbing, cyanosis or edema Discharge Plan Discharge Patient Disposition: Home, Self-Care Discharge Diagnosis: Diverticulitis Referrals: Daniele Rodriguez MD [Physician] - 1 Week Name,MD Mina [Primary Care Provider] - 1 Week Discharge Medications: New amoxicillin-pot clavulanate [Augmentin] 875-125 mg tablet 1 tab PO Q12H Qty: 16 RF: 0 Continued cetirizine 10 mg tablet 1 tab PO DAILY PRN (Reason: Allergic Symptoms) RF: 0 lisinopril 40 mg tablet 1 tab PO DAILY RF: 0 Discharge Orders: Discharge Order (Routine); Ordered 07/09/21 Ordered By: Mariana Melendez Diet: other Activity on Discharge: No heavy lifting Stand Alone Forms: Patient Portal Discharge page Activity Restrictions/Additional Instructions: Avoid heavy lifting and strenuous activity until the time of your follow-up with Dr. Rodriguez in the office. Follow a low residue diet. Call Dr. Rodriguez is a office if you experience increasing pain, fever, or if you have any other concerns regarding your treatment and follow-up. Care Plan Goals: Resolution of diverticulitis, return to usual activities and work Health Concerns: Acute sigmoid diverticulitis, hypertension Plan of Treatment: Complete course of oral antibiotics. Follow-up in office. Assessment: Improved Discharge Date/Time: 07/09/21 13:00
== END 2021-07-09 13:00 | disposition home or self-care (01) | DRG 392 ==
LOC: HO.ED 13:37 → HO.EDOVER 14:47 → HO.S3 19:21
PROVIDERS: Admitting Provider Surgery; Emergency Provider Emergency Medicine; PCP Internal Medicine Geriatric Medicine; Visit Provider Surgery
DX: K57.20 Diverticulitis of large intestine with perforation and abscess without bleeding (principal); Z20.822 Contact with and (suspected) exposure to COVID-19; I10 Essential (primary) hypertension; Z79.899 Other long term (current) drug therapy
CPT/HCPCS: 36415; 74177; 80048; 80053; 80076; 81003; 83605; 83690; 85025; 85610; 87635; 96361; 96374; 96375; 99285; J2270; J2405; J2543; Q9967

== ENCOUNTER → 2021-07-14 08:55 | Outpatient (BNVA) | payer OTHER, SELFPAY | PROVIDERS: PCP Internal Medicine Geriatric Medicine; Referring Provider Internal Medicine Geriatric Medicine; Visit Provider Surgery ==

== ENCOUNTER 2021-08-10 13:03 | Outpatient (REF) | payer OTHER, SELFPAY ==
--- NOTE | ~2021-08-10 | CT_ITS ---
EXAMINATION: CT ABDOMEN AND PELVIS WITH CONTRAST CLINICAL INFORMATION: Diverticulitis. COMPARISON: 07/07/2021 TECHNIQUE: Multidetector volumetric images were obtained from the superior aspect of the liver through the pubic symphysis following administration 85 mL of Omnipaque 350 intravenous contrast. Sagittal and coronal reformatted images were obtained on the technologist's workstation. Oral Contrast: Given. This CT examination was performed using dose optimization techniques as appropriate, variously including the following: *Automated exposure control. *Adjustment of mA and/or kV according to patient size (this includes techniques or standardized protocols for targeted exams where dose is matched to indication/reason for exam; i.e. extremities or head). *Use of iterative reconstruction technique. DLP: 556 mGy-cm FINDINGS: LUNG BASES: The visualized lung bases are unremarkable. LIVER, GALLBLADDER, AND BILIARY TREE: Some segmental differential attenuation similar to previous is likely fatty change. The vessels are not displaced. The gallbladder is unremarkable with no evidence of radiopaque gallstones, gallbladder wall thickening, or obvious pericholecystic inflammatory changes. PANCREAS: Unremarkable. SPLEEN: Unremarkable. ADRENAL GLANDS: Unremarkable. KIDNEYS AND URETERS: The kidneys are normal in size, shape, and attenuation. No hydronephrosis, hydroureter, or calculi seen. No perinephric stranding. BLADDER: Unremarkable. GASTROINTESTINAL TRACT: There is overall decrease in soft tissue stranding around the area of diverticulitis previously but there is some increasing air immediately adjacent to the colon. This area does not disseminate into the remainder of the abdomen. ABDOMINAL WALL: No significant hernia is appreciated. LYMPH NODES: Normal. VASCULAR: Unremarkable. PELVIC VISCERA: Unremarkable. OSSEOUS STRUCTURES: Unremarkable. CT/CT abdomen pelvis w con IMPRESSION: While there is felt to be decreasing in overall soft tissue stranding around the diverticulitis seen previously, there is an increase size of focal pocket of air but this is immediately adjacent to the colon and air has not disseminated into the remainder of the mesentery or abdomen proper. Attention to follow up. Fleischner guidelines were followed.
[2021-08-10] MEDS: iohexoL 350 MG/ML 100 ML INFUS..BTL IV (16:49)
== END 2021-08-10 13:04 | disposition home or self-care (01) ==
LOC: HO.CT 13:03
PROVIDERS: Visit Provider Surgery
DX: K57.80 Diverticulitis of intestine, part unspecified, with perforation and abscess without bleeding (principal)
CPT/HCPCS: 74177; Q9967

== ENCOUNTER → 2021-08-18 13:02 | Outpatient (BNVA) | payer OTHER, SELFPAY | PROVIDERS: PCP Internal Medicine Geriatric Medicine; Referring Provider Internal Medicine Geriatric Medicine; Visit Provider Surgery ==

== ENCOUNTER 2022-06-03 09:27 | Outpatient (REF) | payer OTHER, SELFPAY ==
[2022-06-03 10:05] LABS: Hematocrit 48.3 % (42.0-52.0); Mean Corpuscular HGB Conc 33.1 g/dl (31.0-36.0); Mean Corpuscular Hemoglobin 28.9 pg (27.0-33.0); Mean Corpuscular Volume 87.3 fL (80.0-98.0); Mean Platelet Volume 10.9 fL (9.4-12.4); Platelet Count 241 X10*3/uL (160-400); Red Blood Count 5.53 X10*6/uL (4.60-5.80); Red Cell Distribution Width 12.2 % (11.0-16.0); White Blood Count 8.5 X10*3/uL (4.8-10.8)
[2022-06-03 10:57] LABS: Alanine Aminotransferase 30 U/L (0-40); Albumin Level 4.7 g/dL (3.5-5.0); Alkaline Phosphatase 121 U/L (39-117); Anion Gap 15 (12-20); Aspartate Amino Transferase 20 U/L (5-37); Bilirubin Total 0.5 mg/dL (0.0-1.0); Blood Urea Nitrogen 18 mg/dL (9-16); Carbon Dioxide 28 mmol/L (22-29); Chloride 102 mmol/L (96-108); Cholesterol 217 mg/dL; Estimated Glomerular Filt Rate > 60; Glucose Random 98 mg/dL (60-115); HDL Cholesterol 48 mg/dL; LDL Cholesterol Calculated 133 mg/dl; Potassium 5.2 mmol/L (3.3-5.1); Sodium 140 mmol/L (135-145); Total Protein 7.7 g/dL (6.5-8.0); Triglycerides 180 mg/dL
[2022-06-03 11:06] LABS: Estimated Average Glucose 123 mg/dL; Hemoglobin A1c % 5.9 %
== END 2022-06-03 09:28 | disposition home or self-care (01) ==
LOC: HO.LAB 09:27
PROVIDERS: Visit Provider Internal Medicine Geriatric Medicine
DX: Z00.00 Encounter for general adult medical examination without abnormal findings (principal); Z13.1 Encounter for screening for diabetes mellitus; Z13.220 Encounter for screening for lipoid disorders; Z11.1 Encounter for screening for respiratory tuberculosis
CPT/HCPCS: 36415; 80053; 80061; 83036; 85027; 86481

== ENCOUNTER 2023-06-09 09:23 | Outpatient (REF) | payer OTHER, SELFPAY ==
[2023-06-09 10:41] LABS: Estimated Average Glucose 117 mg/dL; Hemoglobin A1c % 5.7 % (<6.0)
[2023-06-09 11:04] LABS: Anion Gap 14 (12-20); Blood Urea Nitrogen 15 mg/dL (9-16); Calcium 9.6 mg/dL (8.4-10.2); Carbon Dioxide 25 mmol/L (22-29); Chloride 104 mmol/L (96-108); Cholesterol 218 mg/dL (<200); Estimated Glomerular Filt Rate > 60; Glucose Random 94 mg/dL (60-115); HDL Cholesterol 51 mg/dL (>40); LDL Cholesterol Calculated 142 mg/dL (<100); Potassium 4.3 mmol/L (3.3-5.1); Sodium 139 mmol/L (135-145); Triglycerides 125 mg/dL (<150)
== END 2023-06-09 09:24 | disposition home or self-care (01) ==
LOC: HO.LAB 09:23
PROVIDERS: PCP Internal Medicine Geriatric Medicine; Visit Provider Internal Medicine Geriatric Medicine
DX: Z13.220 Encounter for screening for lipoid disorders (principal); R73.03 Prediabetes; I10 Essential (primary) hypertension
CPT/HCPCS: 36415; 80048; 80061; 83036

== ENCOUNTER 2023-11-03 08:25 | Outpatient (REF) | payer OTHER, SELFPAY ==
[2023-11-03 09:48] LABS: Anion Gap 12 (12-20); Blood Urea Nitrogen 20 mg/dL (9-16); Calcium 9.6 mg/dL (8.4-10.2); Carbon Dioxide 27 mmol/L (22-29); Chloride 101 mmol/L (96-108); Estimated Glomerular Filt Rate > 60; Glucose Random 107 mg/dL (60-115); Potassium 5.3 mmol/L (3.3-5.1); Sodium 135 mmol/L (135-145)
== END 2023-11-03 08:26 | disposition home or self-care (01) ==
LOC: HO.LAB 08:25
PROVIDERS: PCP Internal Medicine Geriatric Medicine; Visit Provider Internal Medicine Geriatric Medicine
DX: I10 Essential (primary) hypertension (principal); R73.03 Prediabetes
CPT/HCPCS: 36415; 80048

== ENCOUNTER 2024-01-05 09:24 | Outpatient (REF) | payer OTHER, SELFPAY ==
[2024-01-05 10:52] LABS: Anion Gap 14 (12-20); Blood Urea Nitrogen 16 mg/dL (9-16); Calcium 9.6 mg/dL (8.4-10.2); Carbon Dioxide 25 mmol/L (22-29); Chloride 103 mmol/L (96-108); Cholesterol 158 mg/dL (<200); Estimated Glomerular Filt Rate > 60; Glucose Random 110 mg/dL (60-115); HDL Cholesterol 38 mg/dL (>40); LDL Cholesterol Calculated 96 mg/dL (<100); Potassium 4.3 mmol/L (3.3-5.1); Sodium 138 mmol/L (135-145); Triglycerides 120 mg/dL (<150)
== END 2024-01-05 09:25 | disposition home or self-care (01) ==
LOC: HO.LAB 09:24
PROVIDERS: PCP Internal Medicine Geriatric Medicine; Visit Provider Internal Medicine Geriatric Medicine
DX: I10 Essential (primary) hypertension (principal); E87.5 Hyperkalemia
CPT/HCPCS: 36415; 80048; 80061

== ENCOUNTER 2024-05-17 08:03 | Outpatient (REF) | payer OTHER, SELFPAY ==
[2024-05-17 09:11] LABS: Anion Gap 12 (12-20); Blood Urea Nitrogen 14 mg/dL (9-16); Calcium 9.3 mg/dL (8.4-10.2); Carbon Dioxide 28 mmol/L (22-29); Chloride 103 mmol/L (96-108); Estimated Glomerular Filt Rate > 60; Glucose Random 112 mg/dL (60-115); Potassium 4.3 mmol/L (3.3-5.1); Sodium 139 mmol/L (135-145)
== END 2024-05-17 08:04 | disposition home or self-care (01) ==
LOC: HO.LAB 08:03
PROVIDERS: PCP Internal Medicine Geriatric Medicine; Visit Provider Internal Medicine Geriatric Medicine
DX: I10 Essential (primary) hypertension (principal)
CPT/HCPCS: 36415; 80048

== ENCOUNTER 2024-06-07 07:39 | Outpatient (REF) | payer OTHER, SELFPAY ==
[2024-06-07 09:24] LABS: Anion Gap 12 (12-20); Blood Urea Nitrogen 14 mg/dL (9-16); Calcium 9.8 mg/dL (8.4-10.2); Carbon Dioxide 29 mmol/L (22-29); Chloride 104 mmol/L (96-108); Estimated Glomerular Filt Rate > 60; Glucose Random 110 mg/dL (60-115); Potassium 4.9 mmol/L (3.3-5.1); Sodium 140 mmol/L (135-145)
== END 2024-06-07 07:40 | disposition home or self-care (01) ==
LOC: HO.LAB 07:39
PROVIDERS: PCP Internal Medicine Geriatric Medicine; Visit Provider Internal Medicine Geriatric Medicine
DX: I10 Essential (primary) hypertension (principal)
CPT/HCPCS: 36415; 80048

== ENCOUNTER 2024-08-16 07:25 | Outpatient (REF) | payer OTHER, SELFPAY ==
[2024-08-16 08:23] LABS: Anion Gap 12 (12-20); Blood Urea Nitrogen 18 mg/dL (9-16); Calcium 9.3 mg/dL (8.4-10.2); Carbon Dioxide 27 mmol/L (22-29); Chloride 106 mmol/L (96-108); Estimated Glomerular Filt Rate > 60; Glucose Random 105 mg/dL (60-115); Potassium 4.6 mmol/L (3.3-5.1); Sodium 140 mmol/L (135-145)
[2024-08-16 08:40] LABS: Prostate Specific Antigen 0.87 ng/mL (<0.05-4.0)
== END 2024-08-16 07:26 | disposition home or self-care (01) ==
LOC: HO.LAB 07:25
PROVIDERS: PCP Internal Medicine Geriatric Medicine; Visit Provider Internal Medicine Geriatric Medicine
DX: Z12.5 Encounter for screening for malignant neoplasm of prostate (principal); I10 Essential (primary) hypertension
CPT/HCPCS: 36415; 80048; 84153

== ENCOUNTER 2024-12-20 07:19 | Outpatient (REF) | payer OTHER, SELFPAY ==
[2024-12-20 09:09] LABS: Anion Gap 11 (12-20); Blood Urea Nitrogen 21 mg/dL (9-16); Calcium 9.5 mg/dL (8.4-10.2); Carbon Dioxide 30 mmol/L (22-29); Chloride 99 mmol/L (96-108); Estimated Glomerular Filt Rate > 60; Glucose Random 113 mg/dL (60-115); Potassium 4.4 mmol/L (3.3-5.1); Sodium 136 mmol/L (135-145)
== END 2024-12-20 07:20 | disposition home or self-care (01) ==
LOC: HO.LAB 07:19
PROVIDERS: PCP Internal Medicine Geriatric Medicine; Visit Provider Internal Medicine Geriatric Medicine
DX: I10 Essential (primary) hypertension (principal)
CPT/HCPCS: 36415; 80048

== ENCOUNTER 2025-03-30 09:59 | Emergency (ER) | payer OTHER, SELFPAY ==
[2025-03-30 10:31] VITALS: BP 122/76; PULSE 85; RESP 16; TEMP 36.6; O2SAT 99; BMI 25.7
--- NOTE | 2025-03-30 10:32 | ED_ITS ---
HPI - Nausea/Vomiting/Diarrhea General Chief complaint: Nausea/Vomiting/Diarrhea Stated complaint: Diarrhea, possible food poisoning Time Seen by Provider: 03/30/25 11:19 Source: patient Mode of arrival: ambulatory Limitations: no limitations History of Present Illness ED Provider: HPI Narrative: 54-year-old male presenting with nausea vomiting and diarrhea going on for the past 2 days started after eating seafood during the cruise, he has been using loperamide from a cruise Dr. iris [place]is, his spouse has similar symptoms. No fevers or chills, no hematemesis or hematochezia reported. No abdominal pain. Denies significant alcohol use. Related Data Home Medications ?Medication ?Instructions ?Recorded ?Confirmed cetirizine 10 mg tablet 1 tab PO DAILY PRN Allergic 07/07/21 08/18/21 Symptoms lisinopril 40 mg tablet 1 tab PO DAILY 07/07/2107/28 Previous Rx's ?Medication ?Instructions ?Recorded amoxicillin 875 mg-potassium 1 tab PO Q12H #20 tabs clavulanate 125 mg tablet (Augmentin) dicyclomine 20 mg tablet 20 mg PO TID 3 days #10 tabs 03/30/25 ondansetron 4 mg disintegrating 4 mg PO Q8H PRN nausea and 03/30/25 tablet vomiting #4 tabs Allergies Allergy/AdvReac Type Severity Reaction Status Date / Time No Known Allergies (No Known Allergy Verified 03/30/25 10:36 Allergies*) Review of Systems 2 Constitutional: Constitutional: Reports as per [facility] Past Medical History Medical History Internal hemorrhoids 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 HTN (hypertension) Surgical History Hx of tonsillectomy Family History Family History Mother Uterine cervix cancer Social History Social History Household Members: Spouse Housing: House Do you presently have visiting nurse or other home services: No Alcohol intake: never Patient Tobacco Use Status: Never used Tobacco Smoked in Last 30 Days: No Use of substances other than those prescribed or required for medical reasons: No Advance Directives: Yes Advance Directives on File: Yes Advance Directives Date on File: 07/08/21 service: No Current occupational status: employed Physical Exam 2 Vital Signs: Vital Signs: Last Vital Signs Temp 97.3 F 03/30/25 12:45 Pulse 75 03/30/25 12:45 Resp 15 03/30/25 12:45 BP 111/71 03/30/25 12:45 Pulse Ox 97 03/30/25 12:45 O2 Del Method Room Air 03/30/25 12:45 BMI result Body Mass Index 25.7 Const: Other: * Gen: ?Overall well-appearing patient * Resp: ?No wheezing rales rhonchi no stridor moving air well * Abd: ?Bowel sounds are present, no tenderness no rebound no rigidity * Skin: Warm, dry, intact, * Neuro: ?Alert and oriented x3, moving upper and lower extremities symmetrically, no obvious facial asymmetry noted Course Course Course Narrative: 54 yo male with PMH of HTN, diverticulitis here with c/o diarrhea starting Sunday while on a cruise with his who is also a patient - the patient and at [facility] then started to get sick. Cruise doctor gave them immodum and a shot - they both still have nausea, cramps, chills, non bloody stools. is also a patient. this is a RAPID medical screening exam the rest of the history and physical exam is to be done by the main provider. JANEE 03/30/25 1034am Medications Administered Generic Name Dose Route Start Last Admin Trade Name Freq PRN Reason Stop Dose Admin Lactated Ringer's 1,000 mls @ 0 mls/hr 03/30/25 11:45 03/30/25 12:23 Lr IV 999 mls/hr .Q0M SHERRIE Administration Wide Open Discontinued Medications Generic Name Dose Route Start Last Admin Trade Name Freq PRN Reason Stop Dose Admin Belladonna Alkaloids/Phenobarbital 10 ml 03/30/25 11:34 03/30/25 12:22 Phenobarb/Hyoscy/Atropine/Scop 10 Ml Elixir PO 03/30/25 11:35 10 ml ONCE ONE Administration Ondansetron HCl 4 mg 03/30/25 11:34 03/30/25 12:23 Ondansetron Hcl 4 Mg/2 Ml Vial IVPUSH 03/30/25 11:35 4 mg ONCE ONE Administration Medical Decision Making Medical Decision Making MDM Narrative: Patient presenting nausea or vomiting diarrhea for the past 2 days and, fairly benign abdominal exam, we will obtain stool sample to see whether this is something that requires antibiotics and close monitoring versus a viral infection such as norovirus, we will start with fluids, Zofran IV he is still having some nausea, medications for abdominal discomfort, with a most likely viral enteritis after a cruise would hold off any antibiotics until fevers over a week or culture suggestive of bacterial infection. 13:00 patient re-evaluated he is feeling better will discharge Differential Diagnosis Differential Diagnoses: The differential diagnosis associated with the presentation includes (Gastroenteritis, bacterial versus viral enterocolitis, diverticulitis, SBO, volvulus, dehydration, electrolyte derangements) Admission/Observation Consideration of admission/observation: Escalation of care including admission/observation considered 2022 Emergency Medicine Coding Guide from [employer] on 03/30/2025 All calculations should be rechecked by clinician prior to use RESULT SUMMARY: 4 Estimated Level of Service Problems: Moderate (4) Risk: High (5) Data: Moderate (4) NARRATIVE MDM: This patient's problem complexity is Moderate as patient: has an acute illness with systemic symptoms. This patient's risk is High due to: overall presentation requiring evaluation for a potentially High-risk process. This patient's data complexity is Moderate due to: -multiple tests ordered/reviewed INPUTS: Number and Complexity ?> 6 = 4: acute illness w/systemic sx (f) Risk level ?> 4 = High Tests ordered ?> 2 = 2 Tests results reviewed (excluding labs) ?> 2 = 2 Prior external notes reviewed ?> 0 = 0 Assessment requiring and independent historian ?> 0 = No Independent interpretation of tests ?> 0 = No Discussed management/test interpretation w/external professional ?> 0 = No Lab Data [facility] Lab Attestation statement: I reviewed the patient's lab results. 03/30/25 10:43 03/30/25 10:43 Labs: Lab Results 03/30/25 Range/Units 10:43 WBC 5.1 (4.8-10.8) X10*3/uL RBC 5.39 (4.60-5.80) X10*6/uL Hgb 15.4 (14.0-18.0) g/dl Hct 47.5 (42.0-52.0) % MCV 88.1 (80.0-98.0) fL MCH 28.6 (27.0-33.0) pg MCHC 32.4 (31.0-36.0) g/dl RDW 13.3 (11.0-16.0) % Plt Count 160 D (160-400) X10*3/uL MPV 10.8 (9.4-12.4) fL Immature Gran % (Auto) 0.2 (0.0-0.4) % Neut % (Auto) 49.3 (45-73) % Lymph % (Auto) 33.8 (20-40) % [place] % (Auto) 13.9 H (2-11) % Eos % (Auto) 2.4 (0-4) % Baso % (Auto) 0.4 (0-2) % Lymph # (Auto) 1.7 (1.2-4.9) X10*3/uL [place] # (Auto) 0.7 (0.1-1.2) X10*3/uL Eos # (Auto) 0.1 (0.0-0.4) X10*3/uL Baso # (Auto) 0.0 (0.0-0.2) X10*3/uL Abs Immat Gran (auto) 0.01 (0.00-0.03) X10*3/uL Absolute Neuts (auto) 2.5 (2.0-8.3) x10*3/uL Absolute Nucleated RBC 0.000 (0.0-0.012) X10*3/uL Nucleated RBC % (auto) 0.0 (0.0-0.2) /100WBC Sodium 141 (135-145) mmol/L Potassium 3.8 (3.3-5.1) mmol/L Chloride 103 (96-108) mmol/L Carbon Dioxide 31 H (22-29) mmol/L Anion Gap 11 L (12-20) BUN 14 (9-16) mg/dL Creatinine 1.16 (0.5-1.4) mg/dL Estim Creat Clear Calc 76.0 Estimated GFR > 60 Random Glucose 105 (60-115) mg/dL Calcium 8.9 D (8.4-10.2) mg/dL Magnesium 2.2 (1.6-2.6) mg/dL Total Bilirubin 0.6 (0.0-1.0) mg/dL Direct Bilirubin 0.2 (0.0-0.5) mg/dL AST 19 (5-37) U/L ALT 25 (0-40) U/L Alkaline Phosphatase 91 (39-117) U/L Total Protein 6.9 (6.5-8.0) g/dL Albumin 4.0 (3.5-5.0) g/dL Lipase 10 (8-78) U/L Prescription Management I considered prescription management with: Antibiotic (See reasoning why) Chronic Conditions Patient?s care impacted by: Hypertension Discharge Plan Discharge Clinical Impression: Diarrhea of presumed infectious origin Patient Disposition: Home, Self-Care Additional Instructions: Your workup has been reassuring, you have had no evidence for ongoing significant infection baseball blood work, you nonfebrile, blood work did not reveal dehydration, I did give you fluids and antiemetics in the ER, we will continue ondansetron you can use as prescribed for nausea or vomiting at home, concentrated on staying hydrated with soups such as chicken soup with some salt/rice/boil vegetables something easy to digest, and Bentyl for abdominal cramping, there is really no reason as I discussed with the O2 actually stopped the diarrhea, I recommend you let it run its course if you were able to give us a stool sample was sent it off for infectious etiology and contact you it is positive. Worsening abdominal pain, spiking fevers, mucus and blood in his stool come back to the ER for re-evaluation. Otherwise call your PCP for follow up please Prescriptions: New dicyclomine 20 mg tablet 20 mg PO TID 3 Days Qty: 10 0RF ondansetron 4 mg tablet,disintegrating 4 mg PO Q8H PRN (Reason: nausea and vomiting) Qty: 4 0RF No Action amoxicillin-pot clavulanate [Augmentin] 875-125 mg tablet 1 tab PO Q12H Qty: 20 0RF cetirizine 10 mg tablet 1 tab PO DAILY PRN (Reason: Allergic Symptoms) lisinopril 40 mg tablet 1 tab PO DAILY Referrals: Name,Mina, MD [Primary Care Provider, Internal Medicine] - 1 week Clinical Impression: Diarrhea of presumed infectious origin Print Language: Mongolian
[2025-03-30 10:51] LABS: MANUAL DIFF FLAG NO
[2025-03-30 10:53] LABS: Hematocrit 47.5 % (42.0-52.0); Hemoglobin 15.4 g/dl (14.0-18.0); Imm Gran Abs Auto 0.01 X10*3/uL (0.00-0.03); Imm Gran Pct Auto 0.2 % (0.0-0.4); Lymphocytes Absolute Auto 1.7 X10*3/uL (1.2-4.9); Mean Corpuscular HGB Conc 32.4 g/dl (31.0-36.0); Mean Corpuscular Hemoglobin 28.6 pg (27.0-33.0); Mean Corpuscular Volume 88.1 fL (80.0-98.0); NRBC Abs Auto 0.000 X10*3/uL (0.0-0.012); NRBC Pct Auto 0.0 /100WBC (0.0-0.2); Platelet Count 160 X10*3/uL (160-400); Red Blood Count 5.39 X10*6/uL (4.60-5.80); White Blood Count 5.1 X10*3/uL (4.8-10.8)
[2025-03-30 11:08] LABS: Alanine Aminotransferase 25 U/L (0-40); Albumin Level 4.0 g/dL (3.5-5.0); Alkaline Phosphatase 91 U/L (39-117); Anion Gap 11 (12-20); Aspartate Amino Transferase 19 U/L (5-37); Blood Urea Nitrogen 14 mg/dL (9-16); Calcium 8.9 mg/dL (8.4-10.2); Carbon Dioxide 31 mmol/L (22-29); Chloride 103 mmol/L (96-108); Creatinine Clr Calc Pharmacy 76.0; Estimated Glomerular Filt Rate > 60; Lipase 10 U/L (8-78); Magnesium 2.2 mg/dL (1.6-2.6); Potassium 3.8 mmol/L (3.3-5.1); Sodium 141 mmol/L (135-145); Total Protein 6.9 g/dL (6.5-8.0)
[2025-03-30] MEDS: PHENobarb/Hyoscy/Atropine/Scop 10 ML ELIXIR PO (12:22)
[2025-03-30] MEDS: Lactated Ringers 1,000 ML 999 ML IV (12:23)
--- NOTE | 2025-03-30 12:41 | PC.NURSE ---
pt presents following diarrhea from end of cruise 2 days ago. RR even and unlabored, denies CP or SOB.
[2025-03-30 12:45] VITALS: BP 111/71; PULSE 75; RESP 15; TEMP 36.3; O2SAT 97
--- OUTSIDE RECORDS SUMMARY | 2025-03-30 12:47 | XMS_ITS | Encounter Summary ---
Author Organization [employer] Address [address] [place] [address] Care Team Providers Care Freelance Operator Name Role Phone Name, Mina ENRIQUEZ Primary Care Provider [phone] Encounter Details Date Type Department Care Team (Late st Contact Info) Description 01/26/2023 Abstract [facility] MEDICINE [address] [place], [place] [id number] Name, MD Mina [address] [place], [place] [id number] Social History Tobacco Use Types Packs/Day Years Used Date Smoking Tobacco: Never Passive Smoke Exposure: Never Smokeless Tobacco: Never Alcohol Use Standard Drinks/Week Comments Never 0 (1 standard drink = 0.6 oz pur e alcohol) Depression Answer Date Recorded Patient Health Questionnaire-9 Score 0 01/16/2023 Depression Answer Date Recorded Patient Health Questionnaire-2 Score 0 01/16/2023 Sex and Gender Information Value Date Recorded Sex Assigned at Male 06/26/2022 10:29 AM EDT Legal Sex Male 10:29 AM EDT Gender Identity Male 06/26/2022 10:29 AM EDT Sexual Orientation Straight 06/26/2022 10 :29 AM EDT COVID-19 Exposure Response Date Recorded In the last 10 days, have yo u been in contact with someone who was confirmed or suspected to have Coronavirus/COVID-19? No / Unsure 01/16/2023 3:28 PM EDT documented as of this encounter Plan of Treatment Not on file documented as of this encounter Visit Diagnoses Not on filedocumented in this encounter Additional Health Concerns Assessment Noted Time PHQ-9 Depression Total Score: 0 01/17/20 4:36 PM EDT documented as of this encounter Care Teams Freelance Operator Relationship Specialty Start Date End Date Name, MD Mina [address] [place] [address] PCP - General Family Medicine 12/06/15 documented as of this encounter
[2025-03-30 13:02] LABS: CDiff Gene PCR NEGATIVE (Negative)
[2025-03-30 13:05] VITALS: BP 111/71; PULSE 75; RESP 15; TEMP 36.3; O2SAT 97
[2025-03-30 14:29] LABS: E. coli EAEC Not Detected (Not Detect.); E. coli EPEC Not Detected (Not Detect.); E. coli ETEC Not Detected (Not Detect.); E. coli STEC Not Detected (Not Detect.); Shigella sp./EIEC Not Detected (Not Detect.)
== END 2025-03-30 13:13 | disposition home or self-care (01) ==
PROVIDERS: Emergency Medicine; Emergency Provider Emergency Medicine; PCP Internal Medicine Geriatric Medicine
DX: A08.4 Viral intestinal infection, unspecified (principal); R11.2 Nausea with vomiting, unspecified; Z03.818 Encounter for observation for suspected exposure to other biological agents ruled out; I10 Essential (primary) hypertension; R19.7 Diarrhea, unspecified
CPT/HCPCS: 36415; 80048; 80076; 83690; 83735; 85025; 87493; 87507; 96374; 99284; 99285; J2405; J7120